=== PATIENT | female | born 1945 | race Caucasian/White ===

== ENCOUNTER → 2016-12-05 | Day surgery (SDC) | payer MEDICARE ==
[~2016-12-05] MED LIST: ACETAMINOPHEN/HYDROcodone 325 MG/7.5 MG TAB ONE; AMLO10 PO; ATOR10 PO; BABY ASA PO; BUPIVACAINE/EPINEPHRINE 0.25% PF 30 ML VIAL ONE; CALC600T34 PO; CELE200 PO; FEXO180 PO; FISH1000 PO; FOSI20 PO; GLUC500C56 PO; LACTATED RINGER'S 1000 ML INJ 1,000 ML ONE; LOTE0.5S OU; MAGNESIUM PO; METHTAB PO; MIDAZOLAM HCL 2 MG/2 ML VIAL ONE; OCUTTAB PO; ONDANSETRON HCL 4 MG/2 ML VIAL IV PUSH ONE; PROPOFOL 200 MG/20 ML AMP IV ONE; REST0.05 OU; ROSI1TAB24 PO; TAB-TAB PO; TRAM50 PO; ceFAZolin INJ 1,000 MG VIAL ONE
--- NOTE | 2016-12-05 14:43 | TN ---
cc: LESTER MCMANUS MD DATE OF SURGERY: 12/05/2016 ATTENDING PHYSICIAN/SURGEON PREOPERATIVE DIAGNOSIS Left knee torn lateral meniscus. POSTOPERATIVE DIAGNOSIS Left knee torn lateral meniscus. PROCEDURE Left knee arthroscopy with partial lateral meniscectomy. PROCEDURE IN DETAIL Informed consent was obtained. The patient was taken to the operating room and placed in the supine position on the operating table. She was administered a gram of Ancef in the holding area. She was administered general anesthesia by Dr. Valenzuela. The patient had a tourniquet applied to the left thigh, a time-out was held and confirmed. The left leg was prepped with Betadine soap followed by Betadine paint. Draping commenced with sterile down sheet, sterile U drape, sterile stockinette was placed on the foot and calf and this was wrapped with a Coban, extremity drape was applied. There was elevated maximum height, the leg was allowed to flex over the side of the operating table. An 18 gauge spinal needle was placed in the region of the lateral patellar portal. This region was infiltrated with 4 ccs of 0.25% Marcaine with epinephrine. Infiltration was also performed in the medial and patellar portal and trans-patellar tendon portal regions. Small incision was made with 11-blade, in the region of the trans-patellar tendon portal, inflow cannula was placed. A second incision was placed in the region of the lateral and patellar portal, arthroscopic cannula was placed. Diagnostic arthroscopy commenced. The medial compartment was examined. The medial meniscus, medial femoral condyle, medial tibial plateau all appeared intact. The meniscus was probed through a medial portal and no tears were identified. There were some very mild degenerative changes noted on medial femoral condyle and medial tibial plateau. The scope was maneuvered over the intercondylar notch edge of the lateral compartment, leg was placed in a figure four position. The lateral meniscus appeared quite disorganized. The posterior horn was intact. There was a complex degenerative tear with horizontal cleavage component and radial component, there was a large radial component near the junction of zone four and zone five and the anterolateral corner of the knee. The meniscus was debrided. It was determined that there did not appear to be a stable soft tissue bridge anterior to the popliteus tendon and a subtotal partial lateral meniscectomy was performed. Posterior horn region appeared stable and was intact and was left in place. There were some mild degenerative changes noted in the lateral femoral condyle and lateral tibial plateau. At that time the leg was again flexed over the side of the operating table. Anterior and posterior cruciate ligaments were checked, these appeared normal. Scope was placed in the posterior medial and posterolateral compartments, these appeared normal. Scope was placed in the suprapatellar pouch, this appeared normal. The undersurface of the patella demonstrated some mild chondromalacia changes as did the trochlear groove. There were no pathologic plica seen. At that time the knee was thoroughly irrigated and suctioned, all cannulas were removed. Each of the three portals was closed with single 4-0 Nylon interrupted stitch. Band-Aids, 4x4s, Sof-Rol and Zander wrap were applied to the patient's knee. The patient tolerated the procedure well and was then taken to the recovery room in stable condition. The total tourniquet time was 25 minutes. Estimated blood loss was less than 10 ccs. MD BILL Larson/EDEL /2:08 PM /2:18 PM
== END | disposition home or self-care (01) ==
LOC: ESDC 11:28
PROVIDERS: ATTEND Orthopaedic Surgery
DX: S83.272A Complex tear of lateral meniscus, current injury, left knee, initial encounter (principal)
CPT/HCPCS: 01400; 29881; J0690; J2250; J2405; J3010; J7120